=== PATIENT | female | born 1970 | race Caucasian/White ===

== ENCOUNTER 2023-01-10 08:41 | Emergency (ER) | payer OTHER, SELFPAY ==
[2023-01-10] VITALS (10 sets, daily range): BP systolic 93–145; BP diastolic 69–103; PULSE 80; RESP 14; TEMP 37.4–37.5; O2SAT 68–100
--- NOTE | ~2023-01-10 | XR_ITS ---
XR chest 1V portable DATE: 01/10/2023 09:52 INDICATION: Shortness of breath for 3 days TECHNIQUE: Portable upright AP chest on January 10, 2023 at 0947 hours COMPARISON: None FINDINGS: Normal heart size. Minimal aortic unfolding. No hilar or mediastinal enlargement. No pulmonary infiltrate or consolidation, pleural effusion or pulmonary vascular congestion or pneumo thorax. Included skeletal structures are unremarkable. IMPRESSION: No active cardiopulmonary disease Reviewed, dictated and finalized at location [facility]. [employer]
--- NOTE | ~2023-01-10 | CT_ITS ---
EXAMINATION: CT brain wo con DATE: 01/10/2023 10:21 INDICATION: Headache TECHNIQUE: Computed tomography (CT) of the head was performed without intravenous contrast. The mA wa s adjusted according to patient size. Iterative reconstruction technique was employed. Exam dose: 60 5.33 mGy-cm total exam DLP. COMPARISON: None FINDINGS: No intracranial mass lesion or hemorrhage or cerebrovascular accident is detected. Normal v entricular size. No midline shift or mass effect. No subdural or epidural hematoma is detected. No fracture or bone destruction of the cranial vault. IMPRESSION: Negative Reviewed, dictated and finalized at [facility]. Reviewed, dictated and finalized at location [facility]. ER WELT END IMPRESSION: Negative
--- NOTE | 2023-01-10 09:13 | ECG_ITS ---
Measurements Intervals [place] Rate: 100 P: 63 SC: 155 QRS: 48 QRSD: 89 T: 76 QT: 320 QTc: 414 Interpretive Statements SINUS TACHYCARDIA ABNORMAL RHYTHM ECG NO PREVIOUS ECG AVAILABLE FOR COMPARISON Electronically Signed On 01-10-2023 19:40:49 [employer] by Noemí Puckett M.D.
--- NOTE | 2023-01-10 09:35 | ED.HA ---
HPI - Headache General Chief Complaint: Headache Stated Complaint: Severe Headahce Time Seen by Provider: 01/10/23 09:12 Source: patient and family Mode of arrival: ambulatory Limitations: no limitations History of Present Illness HPI Narrative: This is a 52 year old female that presents to the ER for a headache ongoing over the last week. No recent injuries or trauma. Reports a constant frontal headache. Associated with nausea. She has been taking over the counter medications with little relief. Reports associated congestion, cough and shortness of breath. Denies fevers. Related Data Allergies Allergy/AdvReac Type Severity Reaction Status Date / Time Penicillins Allergy Intermediate Other Verified 08/23/17 18:06 Review of Systems Review of Systems: CONSTITUTIONAL: Denies fever ENT: Reports rhinorrhea, congestion. Denies sore throat, or otalgia. RESPIRATORY: Reports cough and dyspnea. GASTROINTESTINAL: Reports nausea. Denies vomiting NEUROLOGIC: Reports headache. Denies numbness, or weakness. All systems reviewed & are unremarkable except as noted in HPI and below PMFSH Past Medical History Medical History (Updated 01/10/23 @ 12:14 by Beatrice Callahan PA-C) History of chronic sinusitis History of seasonal allergies Social History Social History (Updated 01/10/23 @ 09:36 by Beatrice Callahan PA-C) Smoking status: Current every day smoker Substance use: never Exam Narrative: GENERAL: Well-appearing, well-nourished, and in no acute distress. HEAD: Normocephalic, atraumatic. EYES: PERRLA and EOMI. ENT: Nares clear, no rhinorrhea or epistaxis. Mucous membranes moist. Oropharynx without tonsillar hypertrophy exudate or other lesions. Bilateral TMs pearly smyth non-bulging NECK: Supple. No adenopathy or masses. CHEST: Clear to auscultation. No respiratory distress. No wheezes rales or rhonchi HEART: Regular rate and rhythm. No murmur heard. Normal peripheral pulses. EXTREMITIES: Normal range of motion. No edema. Strength equal in bilateral upper and lower extremities (5/5) SKIN: Warm, dry, no rash. NEURO: No focal deficits. Alert and oriented x3. Cranial nerves II through XII grossly intact. Negative Kernig and Brudzinski PSYCH: Normal mood and affect Course Course Emergency Course: Patient and family updated on work-up thus far. Resting comfortably. Reports improvement with her headache. Vital Signs Vital signs: Vital Signs Blood Pressure 145/103 H 01/10/23 08:49 Temperature 99.5 F 01/10/23 10:57 Blood Pressure 93/69 L 01/10/23 10:31 Pulse Oximetry 100 01/10/23 10:31 MDM - Headache MDM Narrative Medical decision making narrative: Patient presents to the emergency department for headaches and sinus congestion ongoing over the last week. She is afebrile and nontoxic-appearing. Her vitals are stable. She is neurologically intact. CBC is without leukocytosis. Does show some hemoconcentration. Patient was hydrated with IV fluids in the ED. Metabolic panel with mild transaminitis. Influenza and COVID screens are negative. Chest x-ray without acute cardiopulmonary abnormality. CT scan of the brain is negative. Patient was treated with migraine cocktail with relief. Resting comfortably. Updated on work-up and agrees with plan of care. She is to follow-up with her primary care provider. She was given warnings to return to the ER Differential Diagnosis Differential diagnosis: Likely migraine, tension headache, sinusitis and other (subdural hematoma) Lab Data Attestation: I reviewed the patient's lab results. 01/10/23 09:30 01/10/23 09:30 Labs: Lab Results 01/10/23 01/10/23 01/10/23 Range/Units 08:58 09:30 09:30 WBC 6.2 (4.5-10.0) K/mm3 RBC 5.10 (4.2-5.4) M/mm3 Hgb 15.6 H (12.0-15.0) g/dL Hct 47.5 H (37.0-47.0) % MCV 93.1 (80-100) fl MCH 30.6 (26-34) pg MCHC 32.8 (32-36) g/dl RDW 13.8 (11.5-14.5) % Plt Co
[2023-01-10 09:38] LABS: Influenza A QL RT-PCR Negative (Negative); Influenza B QL RT-PCR Negative (Negative); SARS-CoV-2 RNA PCR Negative
[2023-01-10 09:42] LABS: Basophils Percent Auto 0.3 % (0.2-1.2); Eosinophils Percent Auto 0.2 % (0-4.4); Hematocrit 47.5 % (37.0-47.0); Hemoglobin 15.6 g/dL (12.0-15.0); Immature Granulocyte Absolute 0.02 K/mm3 (0.00-0.031); Immature Granulocyte Percent A 0.3 % (0-0.5); Lymphocytes Absolute Auto 0.72 K/mm3 (0.9-3.2); Lymphocytes Percent Auto 11.7 % (18.3-44.2); Mean Corpuscular HGB Conc 32.8 g/dl (32-36); Mean Corpuscular Hemoglobin 30.6 pg (26-34); Mean Corpuscular Volume 93.1 fl (80-100); Mean Platelet Volume 10.7 fl (7.4-10.4); Monocytes Absolute Auto 0.8 K/mm3 (0.1-0.6); Monocytes Percent Auto 13.3 % (2.6-8.5); Neutrophils Absolute Auto 4.6 K/mm3 (1.3-6.7); Neutrophils Percent Auto 74.2 % (45.5-73.1); Platelet Count Result 172 k/mm3 (150-375); Red Cell Distribution Width 13.8 % (11.5-14.5); White Blood Count 6.2 K/mm3 (4.5-10.0)
[2023-01-10 09:52] LABS: Alanine Aminotransferase 54 U/L (6-35); Albumin Level 4.2 g/dL (3.5-5.1); Alkaline Phosphatase 81 U/L (38-126); Anion Gap 3 mmol/L (8-16); Aspartate Amino Transferase 64 U/L (14-36); Bilirubin,Total 0.3 mg/dL (0.2-1.3); Blood Urea Nitrogen 9 mg/dL (7-17); Calcium 8.9 mg/dL (8.4-10.2); Carbon Dioxide 28 mmol/L (22-30); Chloride 105 mmol/L (98-107); Estimated Glomerular Filt Rate > 60; Glucose 140 mg/dL (65-110); Partial Thromboplastin Time 30.2 SECONDS (22.3-36.8); Potassium 3.6 mmol/L (3.4-5.0); Prothrombin Time 12.8 Seconds (11.1-14.7); Sodium 136 mmol/L (137-145)
[2023-01-10] MEDS: SODIUM CHLORIDE 0.9% IV 1,000 ML 999 ML IV CONT (10:23)
[2023-01-10] MEDS: diphenhydrAMINE HCl INJ 50 MG/ML VIAL 25 MG IV PUSH (10:24)
[2023-01-10] MEDS: FAMOTIDINE 20 MG/2 ML VIAL IV PUSH (10:24)
[2023-01-10] MEDS: METOCLOPRAMIDE HCL INJ 10 MG/2 ML VIAL IV PUSH (10:24)
[2023-01-10] MEDS: KETOROLAC 15 MG/ML VIAL (*BKC) IV PUSH (11:49)
== END 2023-01-10 12:35 | disposition home or self-care (01) ==
PROVIDERS: Emergency Medicine; Emergency Provider Physician Assistant; PCP Physician Assistant
DX: J01.10 Acute frontal sinusitis, unspecified (principal); R51.9 Headache, unspecified; Z20.822 Contact with and (suspected) exposure to COVID-19; F17.200 Nicotine dependence, unspecified, uncomplicated
CPT/HCPCS: 36415; 70450; 71045; 80053; 85025; 85610; 85730; 87636; 93005; 96361; 96365; 96375; 99284; J0131; J1200; J1885; J2765; J7030

== ENCOUNTER 2024-08-09 11:28 | Emergency (ER) | payer OTHER, SELFPAY ==
--- NOTE | 2024-08-09 11:35 | ED.URI ---
HPI - URI/Sore Throat General Chief Complaint: Upper Respiratory Infection Stated Complaint: Sore Throat Time Seen by Provider: 08/09/24 11:35 Source: patient Mode of arrival: ambulatory Limitations: no limitations History of Present Illness HPI Narrative: Patient is a 54-year-old female that presents with 4 days of sore throat, congestion, sinus pressure and occasional cough. Patient has been taking [id number] medication with no relief. Patient takes daily allergy medicine. Patient denies any fever, chills, nausea, vomiting, diarrhea. Patient has recently moved into a new house and states she has been very worn down and not sleeping much. Related Data Home Medications Medication Instructions Recorded Confirmed fexofenadine 180 mg tablet 180 mg DIRECTED 08/09/24 08/09/24 fluticasone propionate 50 50 mcg intranasal DIRECTED 08/09/24 08/09/24 mcg/actuation nasal spray,suspension pantoprazole 20 mg tablet,delayed 20 mg PO DIRECTED 08/09/24 08/09/24 release Allergies Allergy/AdvReac Type Severity Reaction Status Date / Time Penicillins Allergy Intermediate Other Verified 08/23/17 18:06 Review of Systems Review of Systems: All systems reviewed & are unremarkable except as noted in HPI and below Constitutional: Constitutional: Denies body ache(s), Denies chills, Denies fatigue, Denies fever(s), Denies headache(s), Denies malaise and Denies weakness Eyes: Eyes: Denies blurry vision, Denies itchy eyes and Denies loss of vision ENT: Denies otalgia, Denies headache(s), Reports nasal congestion, Denies sinus pain, Reports sinus pressure and Reports sore throat Cardiovascular: Cardiovascular: Denies chest pain, Denies irregular heart rhythm and Denies dyspnea Respiratory: Respiratory: Denies cough and Denies dyspnea Gastrointestinal: Gastrointestinal: Denies abdominal pain, Denies diarrhea, Denies nausea and Denies vomiting Musculoskeletal: Musculoskeletal: Denies back pain, Denies myalgias and Denies arthralgias Integumentary/Breasts: Skin/Breast: Denies pruritus and Denies rash Neurologic: Denies headache(s), Denies loss of vision and Denies weakness Psychiatric: Psychiatric: Reports no additional psychiatric complaints Endocrine: Endocrine: Denies fatigue Allergic/Immunologic: Allergic/Immunologic: Denies itchy eyes PMFSH Past Medical History Medical History History of chronic sinusitis History of seasonal allergies Social History Social History Smoking status: Current every day smoker Substance use: never Comments At time of signature, agree with nursing past medical, surgical, social and family history. There is no relevant family history pertinent to the presenting complaint. Exam Const: General: cooperative, healthy appearing, comfortable, no acute distress and well nourished Nutritional Appearance: well nourished Orientation/consciousness: patient oriented x3 Limitations: no limitations HENMT: Head: normal to inspection, normocephalic and atraumatic Ears: hearing grossly normal bilaterally, external ears normal, TM's normal bilaterally, EAC's normal and no periauricular adenopathy Face/Nose/Sinus: Normal external nose present, Abnormal mucous membranes and turbinates present erythematous bilateral and diffuse, normal facial exam, face symmetric and Facial tenderness on exam of face and sinuses Face and sinus: normal facial exam, sinuses nontender and face symmetric Mouth: Yes Normal oral and palatal mucosa present, Yes lip normal, Yes tongue normal, Yes Normal salivary glands and ducts present, Yes oropharynx normal and Yes moist mucous membranes Teeth and gingiva: dentition normal Throat: posterior oropharynx normal, tonsils normal and uvula midline Eyes: General: appearance normal, both eyes and all related structures Alignment and Position: alignment normal an
[2024-08-09 11:38] VITALS: BP 168/105; PULSE 95; RESP 16; O2SAT 99
[2024-08-09 11:41] VITALS: BP 168/105; PULSE 95; RESP 16; O2SAT 99
[2024-08-09 12:00] LABS: EDSTREPNEGPOS1 Negative (Negative)
== END 2024-08-09 12:26 | disposition home or self-care (01) ==
PROVIDERS: Emergency Provider Nurse Practitioner Family; PCP Physician Assistant
DX: J01.00 Acute maxillary sinusitis, unspecified (principal); F17.200 Nicotine dependence, unspecified, uncomplicated
CPT/HCPCS: 87880; 99212; G0463